=== PATIENT | male | born 1980 | race Caucasian/White ===

== ENCOUNTER 2016-10-31 00:36 | Emergency (ER) | payer BC ==
[2016-10-31 00:50] VITALS: BP 143/91; PULSE 94; TEMP 98; BMI 41.3
[2016-10-31] MEDS ORDERED: ASPIRIN 81 MG CHEWABLE TABLETS PO ONE (01:05)
--- NOTE | 2016-10-31 01:05 | PDOC ---
History of Present Illness - General History Source: Patient Exam Limitations: No Limitations - History of Present Illness Initial Comments: 10/31/16 01:21 The patient is a 36 year old male with no significant past medical history who presents to the ED with slight chest pain with palpitations prior to arrival. Patient reports he was in his usual state of health when he was going to bed and suddenly developed chest pain with palpitations. He also reports discomfort in the right arm, SOB, and nausea. He denies diaphoresis, lightheadedness, jaw pain, and vomiting. Patient states he had a similar episode once a couple of years ago where he was told it was due to musculoskeletal and subsequently his symptoms resolved on its own with no difficulties. At time of evaluation, patient states his chest pain and palpitations has minimally resolved on its own. The patient denies fever, chills, cough, abdominal pain and diarrhea. Allergies: NKDA Social History: Social alcohol use. Denies tobacco or recreational drug use. Past Surgical History: None reported <Gloria Huang - Last Filed: 10/31/16 01:21> - General History Source: Patient <Tiarra Fishan - Last Filed: 10/31/16 02:38> - General Chief Complaint: Palpitations Stated Complaint: RAPID HEART BEAT Time Seen by Provider: 10/31/16 01:05 Past History <Gloria Huang - Last Filed: 10/31/16 01:21> - Psycho/Social/Smoking Cessation Hx Suicidal Ideation: No Smoking History: Never smoked Number of Cigarettes Smoked Daily: 0 Information on smoking cessation initiated: No Hx Alcohol Use: No Drug/Substance Use Hx: No <Figueroa Fish - Last Filed: 10/31/16 02:38> - Past Medical History Allergies/Adverse Reactions: Allergies Allergy/AdvReac Type Severity Reaction Status Date / Time No Known Drug Allergies Allergy Verified 10/31/16 00:44 Home Medications: Ambulatory Orders NK [No Known Home Medication] 10/31/16 Review of Systems - Review of Systems Able to Perform ROS?: Yes Comments:: 10/31/16 01:21 CONSTITUTIONAL: Absent: fever, no chills, no fatigue EYES: Absent: visual changes ENT: Absent: ear pain, no sore throat CARDIOVASCULAR: +chest pain, palpitations RESPIRATORY: +SOB Absent: cough GI: +nausea Absent: abdominal pain, no vomiting, no constipation, no diarrhea GENITOURINARY: Absent: dysuria, no frequency, no hematuria MUSKULOSKELETAL: +right arm discomfort Absent: back pain, no arthralgia SKIN: Absent: rash NEURO: Absent: headache <Gloria Huang - Last Filed: 10/31/16 01:21> *Physical Exam - Vital Signs Last Vital Signs Temp Pulse Resp BP Pulse Ox 98.0 F 94 H 14 143/91 98 10/31/16 00:44 10/31/16 00:44 10/31/16 00:44 10/31/16 00:44 10/31/16 00:44 - Physical Exam Comments: 10/31/16 01:22 GENERAL: Well-appearing, well-nourished. No apparent distress. HEENT: Normocephalic, atraumatic. PERRL, EOM intact. CARDIOVASCULAR: Normal S1, S2. Regular rate and rhythm. PULMONARY: Clear to auscultation bilaterally. ABDOMEN: Soft, non-distended, non-tender. EXTREMITIES: Normal ROM in all four extremities. No gross deformities. SKIN: Warm, dry. No rash NEUROLOGICAL: No focal neurological deficits. <Gloria Huang - Last Filed: 10/31/16 01:21> - Vital Signs Last Vital Signs Temp Pulse Resp BP Pulse Ox 98.0 F 94 H 14 143/91 98 10/31/16 00:44 10/31/16 00:44 10/31/16 00:44 10/31/16 00:44 10/31/16 00:44 <Figueroa Fish - Last Filed: 10/31/16 02:38> Heart Score/ECG Review - ECG Impressions Comment:: 10/31/16 01:22 NSR @79bpm Normal ECG <KateaugustinZairaGloria - Last Filed: 10/31/16 01:21> ED Treatment Course - LABORATORY CBC & Chemistry Diagram: 10/31/16 01:16 10/31/16 01:16 <Figueroa Fish - Last Filed: 10/31/16 02:38> Medical Decision Making - Medical Decision Making 10/31/16 02:38 Dr. Fish: The scribe's documentation has been prepared under my direction and personally reviewed by me in its entirery. I confirm that the note above accurately reflects all work, treatment, procedures, and medical decision making performed by me. <Figueroa Fish - Last Filed: 10/31/16 02:38> *DC/Admit/Observation/Transfer - Attestations Scribe Attestion: 10/31/16 01:22 Documentation prepared by Gloria Huang, acting as medical lead for Figueroa Fish MD <Gloria Huang - Last Filed: 10/31/16 01:21> - Discharge Dispostion Admit: No <Figueroa Fish - Last Filed: 10/31/16 02:38> Diagnosis at time of Disposition: Palpitations - Discharge Dispostion Disposition: HOME Condition at time of disposition: Stable - Referrals Referrals: Alanis Morgan MD [Staff Physician] - Herbert Segovia MD [Staff Physician] - - Patient Instructions Printed Discharge Instructions: DI for Palpitations Additional Instructions: Please follow up with the doctors provided. Take an 81mg Aspirin daily. Return if any problems. - Post Discharge Activity Work/School Note: Back to Work
[2016-10-31] MEDS ORDERED: ASPIRIN 81 MG CHEWABLE TABLETS ONE (01:25)
[2016-10-31 01:26] LABS: BASOPHIL 0.5 % (0-2.0); MCH 30.1 pg (25.7-33.7); MCHC 34.2 g/dl (32.0-35.9); MEAN CELL VOLUME 88.1 fl (80-96); MEAN PLT VOLUME 7.7 fl (7.5-11.1); NEUTROPHILS 55.2 % (42.8-82.8); PLATELET COUNT 200 K/MM3 (134-434); RDW 13.2 % (11.9-15.9); WHITE BLOOD COUNT 8.2 K/mm3 (4.0-10.0)
[2016-10-31 01:36] LABS: INR 1.08 (0.82-1.09); PROTHROMBIN TIME (PATIENT) 11.9 SEC (9.98-11.88)
[2016-10-31 01:47] LABS: ALBUMIN 4.1 g/dl (3.4-5.0); BILIRUBIN,TOTAL 0.5 mg/dL (0.2-1.0); CALCIUM 8.9 mg/dL (8.5-10.1); CO2 29 mmol/L (21-32); CREATININE 1.1 mg/dL (0.7-1.3); GLUCOSE,RANDOM 123 mg/dL (74-106); MAGNESIUM 2.2 mg/dL (1.8-2.4); SGOT/AST 32 U/L (15-37); SGPT/ALT 93 U/L (12-78)
[2016-10-31 01:50] LABS: ALK PHOS 101 U/L (45-117); TROPONIN I < 0.02 ng/ml (0.00-0.05)
[2016-10-31 02:02] LABS: ANION GAP 8 (8-16)
--- NOTE | 2016-10-31 13:36 | EKG ---
Test Reason : Blood Pressure : / mmHG Vent. Rate : 079 BPM Atrial Rate : 079 BPM P-R Int : 168 ms QRS Dur : 092 ms QT Int : 364 ms P-R-T Axes : 010 022 004 degrees QTc Int : 417 ms NORMAL SINUS RHYTHM NORMAL ECG NO PREVIOUS ECGS AVAILABLE Confirmed by GORDON PEARSON MD ([id number]) on 10/31/2016 1:35:30 PM Referred By: Confirmed By:GORDON PEARSON MD
== END 2016-10-31 02:46 | disposition home or self-care (01) ==
LOC: JER 00:36
DX: R00.2 Palpitations (principal)
CPT/HCPCS: 36415; 71010-TC; 80053; 82550; 83735; 84484; 85025; 85610; 93005; 93010; 99283-25

== ENCOUNTER 2016-11-05 04:21 | Emergency (ER) | payer BC ==
[2016-11-05 04:53] VITALS: BMI 39.9
--- NOTE | 2016-11-05 05:05 | PDOC ---
History of Present Illness - General History Source: Patient Exam Limitations: No Limitations - History of Present Illness Initial Comments: 11/05/16 05:32 The patient is a 36 year old male with significant past medical history of GERD , sleep apnea, hld, previous history of depression and general anxiety (not on medication for 10 year) who presents with chest pain. He notes that he developed a chest pain and right arm numbness. Patient notes that he went to sleep last night and experienced numbness and tingling of his left side of the body. He states that he has been experiencing these episodes every night, first everything starts with palpitations and then he experiences extremity numbness. He presented to an urgent care today that he reports suggested it was combination of sleep apnea and GERD. He was seen in [facility] 6 days ago and had lab work done that came back normal but he keeps experiencing the same symptoms. He states that in college 10 years ago he used to see a counseling therapist for depression and anxiety because his parents were going through a divorce he is no longer on medication for 10 years. FH: father diabetes SH: Non smoker, social drinker <Verona Arce - Last Filed: 11/05/16 05:32> <Shana Ames - Last Filed: 11/09/16 20:53> - General Chief Complaint: Chest Pain Stated Complaint: CHEST PAIN Time Seen by Provider: 11/05/16 05:05 Past History <Verona Arce - Last Filed: 11/05/16 05:32> - Psycho/Social/Smoking Cessation Hx Suicidal Ideation: No Smoking History: Never smoked Have you smoked in the past 12 months: No Number of Cigarettes Smoked Daily: 0 Information on smoking cessation initiated: No Hx Alcohol Use: No Drug/Substance Use Hx: No <Shana Ames - Last Filed: 11/09/16 20:53> - Past Medical History Allergies/Adverse Reactions: Allergies Allergy/AdvReac Type Severity Reaction Status Date / Time No Known Drug Allergies Allergy Verified 11/05/16 04:50 Home Medications: Ambulatory Orders Clonazepam [Klonopin] 1 mg PO BID PRN #7 tablet MDD 2 11/06/16 Review of Systems - Review of Systems Able to Perform ROS?: Yes Comments:: 11/05/16 05:33 GENERAL/CONSTITUTIONAL: No fever or chills. No weakness. HEAD, EYES, EARS, NOSE AND THROAT: No change in vision. No ear pain or discharge. No sore throat. CARDIOVASCULAR: +chest pain, palpitations. No shortness of breath. RESPIRATORY: No cough, wheezing, or hemoptysis. GASTROINTESTINAL: No nausea, vomiting, diarrhea or constipation. GENITOURINARY: No dysuria, frequency, or change in urination. MUSCULOSKELETAL: No joint or muscle swelling or pain. No neck or back pain. SKIN: No rash NEUROLOGIC: No headache, vertigo, loss of consciousness, or change in strength/ sensation. ENDOCRINE: No increased thirst. No abnormal weight change. HEMATOLOGIC/LYMPHATIC: No anemia, easy bleeding, or history of blood clots. ALLERGIC/IMMUNOLOGIC: No hives or skin allergy. <Verona Arce - Last Filed: 11/05/16 05:32> *Physical Exam - Vital Signs Last Vital Signs Temp Pulse Resp BP Pulse Ox 97 F L 75 14 120/77 100 11/05/16 04:51 11/05/16 04:51 11/05/16 04:51 11/05/16 04:51 11/05/16 04:51 - Physical Exam Comments: 11/05/16 05:34 GENERAL: Awake, alert, and fully oriented, in no acute distress HEAD: No signs of trauma EYES: PERRLA, EOMI, sclera anicteric, conjunctiva clear ENT: Auricles normal inspection, hearing grossly normal, nares patent, oropharynx clear without exudates. Moist mucosa NECK: Normal ROM, supple, no lymphadenopathy, JVD, or masses LUNGS: Breath sounds equal, clear to auscultation bilaterally. No wheezes, and no crackles HEART: Regular rate and rhythm, normal S1 and S2, no murmurs, rubs or gallops ABDOMEN: Soft, nontender, normoactive bowel sounds. No guarding, no rebound. No masses EXTREMITIES: Normal range of motion, no edema. No clubbing or cyanosis. No cords, erythema, or tenderness NEUROLOGICAL: Cranial nerves II through XII grossly intact. Normal speech, normal gait SKIN: Warm, Dry, normal turgor, no rashes or lesions noted. <Verona Arce - Last Filed: 11/05/16 05:32> - Vital Signs Last Vital Signs Temp Pulse Resp BP Pulse Ox 97 F L 75 14 120/77 100 11/05/16 04:51 11/05/16 04:51 11/05/16 04:51 11/05/16 04:51 11/05/16 04:51 <Shana Ames - Last Filed: 11/09/16 20:53> ED Treatment Course - LABORATORY CBC & Chemistry Diagram: 11/05/16 06:45 11/05/16 06:45 <Shana Ames - Last Filed: 11/09/16 20:53> Medical Decision Making - Medical Decision Making 11/05/16 06:02 Pt returns today with palpitations, chest discomfort and tingling in his left shoulder that went to his right shoulder and right arm and hand and right leg. He states he felt numb in his entire right side, freaked out, got palpitations and returned to the ER. Pt was in our ER 5 days ago for palpitaitons and CP and he had normal labs and normal CXR and normal vitals and normal exam. Pt has normal vitals, 11/05/16 06:50 Pt has normal cardiac enzymes, but D dimer is elevated; we will check rest of labs so that we can get a CTA chest and a head CT scan. Pt will be signed out to the AM ER doctor. <Shana Ames - Last Filed: 11/09/16 20:53> *DC/Admit/Observation/Transfer - Attestations Scribe Attestion: 11/05/16 05:34 Documentation prepared by [employer], acting as biomedical engineering professor for Shana Ames MD. <Verona Arce - Last Filed: 11/05/16 05:32> <Shana Ames - Last Filed: 11/09/16 20:53> Diagnosis at time of Disposition: Anxiety, Atypical chest pain - Discharge Dispostion Disposition: HOME Condition at time of disposition: Stable - Prescriptions Prescriptions: Clonazepam [Klonopin] 1 mg PO BID PRN #7 tablet MDD 2 PRN Reason: Anxiety - Patient Instructions Printed Discharge Instructions: DI for Atypical Chest Pain, DI for Anxiety -- Adult Additional Instructions: Activity as tolerated. Stay hydrated. Blood tests, an EKG, a CT of the head, and a CT of the chest showed no acute abnormalities. As discussed, your discomfort could be coming from GERD/gastritis: Start Prilosec as previously prescribed, overlap this with Zantac for 10-14 days, then take Prilosec daily and Zantac as needed. Avoid dairy, spicy or fatty foot , caffeine and alcohol. As also discussed, your symptoms could be due to anxiety. Take Klonopin as prescribed, preferably at night, as needed for symptoms. Klonopin can make you lightheaded, so take proper precautions. Tylenol 1000 mg every 8 hours as needed for pain. Continue your medications as previously prescribed by your physician. You should follow up with your primary doctor as soon as possible regarding today's emergency department visit. Consider an outpatient stress test with a [employer] consultant to further evaluate your heart. Return to the emergency department for any new or concerning symptoms, particularly persistent or worsening pain, difficulty breathing or persistent palpitations, vomiting blood, fevers or chills, uncontrollable anxiety.
[2016-11-05] MEDS ORDERED: LORazepam 1 MG TABLET PO ONE (05:21)
[2016-11-05] MEDS ORDERED: LORazepam 0.5 MG TABLET ONE (05:31)
[2016-11-05 05:58] LABS: TROPONIN I < 0.02 ng/ml (0.00-0.05)
[2016-11-05 06:57] LABS: BASOPHIL 0.4 % (0-2.0); EOSINOPHIL 3.3 % (0-4.5); MCH 30.2 pg (25.7-33.7); MCHC 34.3 g/dl (32.0-35.9); PLATELET COUNT 223 K/MM3 (134-434); RDW 13.1 % (11.9-15.9); WHITE BLOOD COUNT 9.8 K/mm3 (4.0-10.0)
[2016-11-05] MEDS ORDERED: SODIUM CHLORIDE 1,000 ML IV ONE (07:19)
[2016-11-05 07:32] LABS: ALBUMIN 4.2 g/dl (3.4-5.0); ALK PHOS 101 U/L (45-117); ANION GAP 10 (8-16); BILIRUBIN,TOTAL 0.6 mg/dL (0.2-1.0); CALCIUM 9.5 mg/dL (8.5-10.1); CO2 28 mmol/L (21-32); GLUCOSE,RANDOM 90 mg/dL (74-106); SGOT/AST 39 U/L (15-37); SGPT/ALT 105 U/L (12-78); TOT PROT 7.6 g/dl (6.4-8.2)
--- NOTE | 2016-11-05 07:44 | PDOC ---
*Physical Exam - Vital Signs Last Vital Signs Temp Pulse Resp BP Pulse Ox 97 F L 80 18 127/70 98 11/05/16 04:51 11/05/16 07:12 11/05/16 07:12 11/05/16 07:12 11/05/16 07:12 ED Treatment Course - LABORATORY CBC & Chemistry Diagram: 11/05/16 06:45 11/05/16 06:45 - ADDITIONAL ORDERS Additional order review: Laboratory Results 11/05/16 11/05/16 11/05/16 06:45 05:16 05:16 D-Dimer 606 H Sodium 140 Potassium 4.1 Chloride 102 Carbon Dioxide 28 Anion Gap 10 BUN 12 Creatinine 1.0 Creat Clearance w eGFR > 60 Random Glucose 90 D Calcium 9.5 Total Bilirubin 0.6 AST 39 H D ALT 105 H Alkaline Phosphatase 101 Creatine Kinase 74 Troponin I < 0.02 Total Protein 7.6 Albumin 4.2 11/05/16 06:45 RBC 5.14 MCV 88.0 MCHC 34.3 RDW 13.1 MPV 8.0 Neutrophils % 63.0 Lymphocytes % 26.2 Monocytes % 7.1 Eosinophils % 3.3 Basophils % 0.4 - Medications Given in the ED: ED Medications Discontinued Medications Generic Name Dose Route Start Last Admin Trade Name Freq PRN Reason Stop Dose Admin Lorazepam 2 mg 11/05/16 05:21 11/05/16 05:34 Ativan - PO 11/05/16 05:22 2 mg ONCE ONE Administration Medical Decision Making - Medical Decision Making 11/05/16 07:39 Received signout on this 36-year-old male who presents with ongoing nighttime chest discomfort for the last week, associated with palpitations and now almost whole body numbness. Has a history of GERD being treated with Zantac and anxiety off meds. Has no exertional limitations, has no PE risk factors, denies smoking or drug use. Previously seen here a few days ago with normal workup, referred to his primary physician. Returns tonight for the above constellation of symptoms. Now resolved, looks and feels well. EKG, troponin were performed and were within normal limits. D-dimer had been sent and was positive at 600. Plan at signout was to check CTA chest, CT head given the body numbness though low clinical suspicion for TIA/CVA given lack of risk factors and focality. Will check CT, f/u pending labs, and dispo accordingly. 11/05/16 10:23 Sleeping comfortably, asymptomatic. Abdomen is benign, cardiopulmonary exam is normal. CT head, CTA chest, remaining labs are within normal limits. No PE or acute abnormality. Discussed again at length with patient, his symptoms seem most consistent with anxiety, has had significant stressors of late. Will give brief course of Klonopin, understands return criteria. Was recently prescribed Prilosec as outpatient, will follow-up regarding endoscopy. Can follow-up with PMD and cardiology for outpatient stress test, understands return criteria. *DC/Admit/Observation/Transfer Diagnosis at time of Disposition: Anxiety, Atypical chest pain - Discharge Dispostion Condition at time of disposition: Stable - Prescriptions Prescriptions: Clonazepam [Klonopin] 1 mg PO BID PRN #7 tablet MDD 2 PRN Reason: Anxiety - Patient Instructions Printed Discharge Instructions: DI for Atypical Chest Pain, DI for Anxiety -- Adult Additional Instructions: Activity as tolerated. Stay hydrated. Blood tests, an EKG, a CT of the head, and a CT of the chest showed no acute abnormalities. As discussed, your discomfort could be coming from GERD/gastritis: Start Prilosec as previously prescribed, overlap this with Zantac for 10-14 days, then take Prilosec daily and Zantac as needed. Avoid dairy, spicy or fatty foot , caffeine and alcohol. As also discussed, your symptoms could be due to anxiety. Take Klonopin as prescribed, preferably at night, as needed for symptoms. Klonopin can make you lightheaded, so take proper precautions. Tylenol 1000 mg every 8 hours as needed for pain. Continue your medications as previously prescribed by your physician. You should follow up with your primary doctor as soon as possible regarding today's emergency department visit. Consider an outpatient stress test with a ergonomics consultant to further evaluate your heart. Return to the emergency department for any new or concerning symptoms, particularly persistent or worsening pain, difficulty breathing or persistent palpitations, vomiting blood, fevers or chills, uncontrollable anxiety.
[2016-11-05 07:50] LABS: INR 1.08 (0.82-1.09); PROTHROMBIN TIME (PATIENT) 11.9 SEC (9.98-11.88)
[2016-11-05 10:41] VITALS: BP 119/68; PULSE 70; TEMP 98
--- NOTE | 2016-11-13 17:52 | EKG ---
Test Reason : Blood Pressure : / mmHG Vent. Rate : 063 BPM Atrial Rate : 063 BPM P-R Int : 176 ms QRS Dur : 092 ms QT Int : 390 ms P-R-T Axes : 020 027 015 degrees QTc Int : 399 ms NORMAL SINUS RHYTHM NORMAL ECG WHEN COMPARED WITH ECG OF 31-OCT-2016 01:08, NO SIGNIFICANT CHANGE WAS FOUND Confirmed by ERNESTO PARHAM MD ([id number]) on 11/13/2016 5:52:15 PM Referred By: Confirmed By:ERNESTO PARHAM MD
== END 2016-11-05 10:40 | disposition home or self-care (01) ==
LOC: JER 04:21
PROC: 3E0337Z Introduction of Electrolytic and Water Balance Substance into Peripheral Vein, Percutaneous Approach (ICD-10-PCS; principal; 2016-11-05)
DX: F41.8 Other specified anxiety disorders (principal); R07.89 Other chest pain
CPT/HCPCS: 36415; 70450-TC; 71275-TC; 80053; 82550; 84484; 85025; 85379; 85610; 85730; 93005; 93010; 99282-25

== ENCOUNTER 2019-04-08 11:35 | Emergency (ER) | payer BC ==
[2019-04-08 11:45] VITALS: BMI 39.4
--- NOTE | 2019-04-08 12:53 | PDOC ---
Documentation entered by Carmelita Horan SCRIBE, acting as scribe for Bree Noe MD. Bree Noe MD: This documentation has been prepared by the Aung lopez Sammi, SCRIBE, under my direction and personally reviewed by me in its entirety. I confirm that the documentation accurately reflects all work, treatment, procedures, and medical decision making performed by me. Attending Attestation - Resident Resident Name: EuniceSaSarita - ED Attending Attestation I have performed the following: I have examined & evaluated the patient, The case was reviewed & discussed with the resident, I agree w/resident's findings & plan, Exceptions are as noted - HPI HPI: 04/08/19 12:55 The patient is a 38 year old male, with no significant PMH who presents to the emergency department for evaluation of 2-3 weeks of intermittent migrating chest pain with numbness and tingling down right upper extremity. The patient reports he has been experiencing episodes of throbbing non pleuritic right sided chest and right arm pain over the last few days. He states a few days ago the chest pain was more so on the left side but now seems to have migrated to the right. Denies central chest or abd pain, no radiation to the back. He states over the last few weeks, the chest pain occurred only after eating heavy meals. He notes he woke up this morning and felt a more dull right sided chest pain and was sweating more than usual despite the hot weather. He became concerned that he had the pain this morning w/o a preceding meal, prompting him to come to the ED. The patient denies any other alleviating or exacerbating factors during episodes and that the pains self resolves after a few mins. The patient reports he was evaluated in urgent care on Saturday and presents with an EKG. He also presents complaining of mild nausea this morning that resolved. Denies calf pain or leg swelling. Denies recent immobilization or surgery. Denies exogenous hormone use. Has no personal or family hx clots. Denies family history of heart disease at young age. Denies any tobacco or drug use. The patient states he follows with Dr. Kennedy since an episode of CP/ palpitations in Oct 2016 and has had cardiac testing, including stress and echo , which reportedly have been normal. The patient denies shortness of breath, headache and dizziness, weakness, cough. Denies fever, chills, abdominal pain, nausea, vomiting, diarrhea and constipation. Denies dysuria, frequency, urgency and hematuria. - Physicial Exam PE: 04/08/19 12:59 GENERAL: Awake, alert, and fully oriented, in no acute distress HEAD: No signs of trauma EYES: PERRLA, EOMI, sclera anicteric, conjunctiva clear ENT: Nares patent, oropharynx clear without exudates. Moist mucosa NECK: Normal ROM, supple, no lymphadenopathy, JVD, or masses LUNGS: Breath sounds equal, clear to auscultation bilaterally. No wheezes, and no crackles HEART: Regular rate and rhythm, normal S1 and S2, no murmurs, rubs or gallops ABDOMEN: Soft, nontender, normoactive bowel sounds. No guarding, no rebound. No masses EXTREMITIES: Normal range of motion, no edema. No clubbing or cyanosis. No cords , erythema, or tenderness BACK: No midline spinal tenderness in cervical/thoracic/lumbar region NEUROLOGICAL: Normal speech, cranial nerves intact, 5/5 strength in all 4 extremities, normal sensation to light touch in all 4 extremities, normal cerebellar exam, normal gait, normal tone SKIN: Warm, Dry, normal turgor, no rashes or lesions noted. - Medical Decision Making 04/08/19 12:49 38yo M with no sig PMH presents to the ED with 2-3 weeks of intermittent migrating CP, initially worse after meals, now present upon waking up this AM Vitals wnl Exam wnl EKG non ischemic with isolated TWI in III Pt is low risk for ACS and has had extensive cardiac testing within last 1-[address] Kennedy Meets no PERC criteria, low likelihood PE Possible GERD or biliary colic? No abd ttp and negative murphys on exam Will check labs including trop x2, CXR, discuss with Dr. Kennedy 04/08/19 16:13 No CP/numbness/tingling down UE's in the ED Trop neg x2 CXR wnl, normal mediastinum Bedside sono by Dr. Pelletier with normal appearing lungs, echo, and gallbladder with no disease Likely GERD sxs Pt well appearing, clinically stable for DC home Case discussed with Dr. Mosley (covering for Dr. Kennedy) who agrees with DC with close outpt cards f/u I discussed the physical exam findings, ancillary test results and final diagnoses with the patient. I answered all of the patient's questions. The patient was satisfied with the care received and felt comfortable with the discharge plan and treatment plan. The patient will call their primary care physician within 24 hours to arrange follow-up and will return to the Emergency Department with any new, persistent or worsening symptoms. Heart Score/ECG Review - History History: Slightly suspicious - Electrocardiogram EKG: Normal - Age Age: </= 45 - Risk Factors Risk Factors Heart Score: Yes Hx Obesity Based on the list above the patient has:: 1-2 risk factors - Troponin Troponin: </= normal limit - Score Heart Score - Total: 1 #1 04/08/19 12:51 Twelve-lead EKG was performed and reviewed by me. Normal sinus rhythm, rate 71. Normal axis and intervals. No ST elevations. Isolated T-wave inversion in lead 3. No significant change compared to EKG from 11/05/2016.
[2019-04-08 13:15] LABS: BASO % 0.3 % (0-2.0); EOS % 3.3 % (0-4.5); HEMATOCRIT 43.4 % (35.4-49); HEMOGLOBIN 14.8 GM/dL (11.7-16.9); MCH 30.5 pg (25.7-33.7); MCHC 34.2 g/dl (32.0-35.9); MEAN CELL VOLUME 89.3 fl (80-96); MEAN PLT VOLUME 7.8 fl (7.5-11.1); MONO % 7.8 % (3.8-10.2); NEUT % 64.6 % (42.8-82.8); PLATELET COUNT 204 K/MM3 (134-434); RBC 4.86 M/mm3 (4.00-5.60); RDW 12.6 % (11.9-15.9); WHITE BLOOD COUNT 7.2 K/mm3 (4.0-10.0)
[2019-04-08 13:50] LABS: BILIRUBIN,TOTAL 0.5 mg/dL (0.2-1); BLOOD UREA NITROGEN 7.4 mg/dL (7-18); CALCIUM 9.3 mg/dL (8.5-10.1); CREATININE 1.1 mg/dL (0.55-1.3); MAGNESIUM 2.4 mg/dL (1.8-2.4); POTASSIUM 4.4 mmol/L (3.5-5.1); TOT PROT 7.4 g/dl (6.4-8.2)
--- NOTE | 2019-04-08 13:50 | PDOC ---
History of Present Illness - General Chief Complaint: Chest Pain Stated Complaint: RT SIDE CHEST PAIN Time Seen by Provider: 04/08/19 11:49 History Source: Patient Exam Limitations: No Limitations - History of Present Illness Initial Comments: 04/08/19 13:36 38yo M with PMH of GERD presenting to ED with complaints of R sided chest pain that started at 7am today and has been waxing/waning. He has had pains on the left side that he associates with eating salty food but this pain was present when he woke up. Because the pain presented this AM which was different than usual, pt wanted to get checked out. He was seen 2 years ago for similar problems but pain was more so on the L side. He had negative workup and saw GI for endoscopy/colonoscopy and cardiology for echo and stress test with normal results. Denies feeling more stressed than usual. Denies SOB, pain with exertion , injury, drug use, recent travel, leg swelling, fevers, chills, cough, abdominal pain, n/v/d, change in urinary or bowel habits, numbness/tingling. No cardiac events in the family. PMD: [place] Cards: [place]? PMH: see hpi PSH: none Meds: zantac occasionally Allergies: nkda Social: denies Past History - Past Medical History Allergies/Adverse Reactions: Allergies Allergy/AdvReac Type Severity Reaction Status Date / Time No Known Drug Allergies Allergy Verified 04/08/19 11:45 Home Medications: Ambulatory Orders Clonazepam [Klonopin] 1 mg PO BID PRN #7 tablet MDD 2 11/06/16 COPD: No - Suicide/Smoking/Psychosocial Hx Smoking History: Never smoked Have you smoked in the past 12 months: No Number of Cigarettes Smoked Daily: 0 Information on smoking cessation initiated: No Hx Alcohol Use: No Drug/Substance Use Hx: No *Physical Exam - Vital Signs Last Vital Signs Temp Pulse Resp BP Pulse Ox 98.7 F 76 17 100/86 99 04/08/19 11:43 04/08/19 11:43 04/08/19 11:43 04/08/19 11:43 04/08/19 11:43 Heart Score/ECG Review - Electrocardiogram EKG: Non specific repolarization disturbance - Age Age: </= 45 - Risk Factors Risk Factors Heart Score: Yes Hx Obesity Based on the list above the patient has:: 1-2 risk factors - Troponin Troponin: </= normal limit ED Treatment Course - LABORATORY CBC & Chemistry Diagram: 04/08/19 13:03 04/08/19 13:03 - ADDITIONAL ORDERS Additional order review: 04/08/19 13:03 RBC 4.86 MCV 89.3 MCHC 34.2 RDW 12.6 MPV 7.8 Neutrophils % 64.6 Lymphocytes % 24.0 Monocytes % 7.8 Eosinophils % 3.3 Basophils % 0.3 - RADIOLOGY Radiology Studies Ordered: Category Date Time Status CHEST PA & LAT [RAD] Stat Radiology 04/08/19 12:17 Completed Medical Decision Making - Medical Decision Making 04/08/19 13:50 38yo M with PMH of GERD presenting to ED with complaints of R sided chest pain that started at 7am today and has been waxing/waning. He has had pains on the left side that he associates with eating salty food but this pain was present when he woke up. Because the pain presented this AM which was different than usual, pt wanted to get checked out. He was seen 2 years ago for similar problems but pain was more so on the L side. He had negative workup and saw GI for endoscopy/colonoscopy and cardiology for echo and stress test with normal results. Denies feeling more stressed than usual. Denies SOB, pain with exertion , injury, drug use, recent travel, leg swelling, fevers, chills, cough, abdominal pain, n/v/d, change in urinary or bowel habits, numbness/tingling. No cardiac events in the family. Vitals: wnl PE: benign, no reproducible pain, full rom, no abdominal tenderness, lungs cta ddx includes but not limited to acs, pe, pna, ptx, costochondritis, msk, electrolyte/metabolic abnormality, mass/malignancy, neuropathy, biliary disease low suspicion for acs (HEART <3), PERC negative, no clinical signs of pna -ekg, cxr -trop, cbc, cmp -pt asymptomatic at this time, does not require intervention at this time. 04/08/19 13:55 Labs wnl. ekg: TWI in III, nsr CXR: no acute pathology will get second troponin due to worsening cp this am 04/08/19 14:08 *DC/Admit/Observation/Transfer Diagnosis at time of Disposition: Atypical chest pain - Discharge Dispostion Disposition: HOME Condition at time of disposition: Good Decision to Admit order: No - Referrals Referrals: Adeola Arellano MD [Primary Care Provider] - Luis Eduardo Kennedy MD [Staff Physician] - - Patient Instructions Printed Discharge Instructions: DI for Atypical Chest Pain Additional Instructions: You were seen in the emergency room for chest pain. Your blood tests and EKG were normal. I recommend taking Tylenol or ibuprofen for the pain as needed. Please follow up with your data entry clerk and your primary care doctor early next week for further evaluation of your symptoms. Come back to the emergency room if pain gets worse, you have difficulty breathing, if you pass out, have fever, worsening numbness or if any new concerning symptom develops. Thank you - Post Discharge Activity
[2019-04-08 16:31] VITALS: BP 118/85; PULSE 72; TEMP 98.1
--- NOTE | 2019-04-09 10:19 | EKG ---
Test Reason : Blood Pressure : / mmHG Vent. Rate : 071 BPM Atrial Rate : 071 BPM P-R Int : 168 ms QRS Dur : 086 ms QT Int : 378 ms P-R-T Axes : 011 020 011 degrees QTc Int : 410 ms NORMAL SINUS RHYTHM WHEN COMPARED WITH ECG OF 05-NOV-2016 04:46, NO SIGNIFICANT CHANGE WAS FOUND Confirmed by DANYELL RICH MD ([id number]) on 04/09/2019 10:19:41 AM Referred By: Confirmed By:DANYELL RICH MD
== END 2019-04-08 16:30 | disposition home or self-care (01) ==
LOC: JER 11:35
DX: R07.89 Other chest pain (principal); K21.9 Gastro-esophageal reflux disease without esophagitis; E66.9 Obesity, unspecified; Z68.39 Body mass index [BMI] 39.0-39.9, adult
CPT/HCPCS: 36415; 71046-TC-FY; 80053; 83735; 84484; 85025; 93005; 93010; 99283-25